=== PATIENT | female | born 1995 | race African-American/Black ===

== ENCOUNTER 2016-11-13 06:55 | Emergency (ER) | payer OTHER ==
[~2016-11-13] VITALS: Ht 154.9 cm; Wt 72.0 kg
[2016-11-13 06:56] VITALS: BP 132/79; PULSE 79; RESP 17; TEMP 97.8; O2SAT 100
[2016-11-13] MEDS ORDERED: ONDANSETRON ODT 4 MG TAB PO ONE (08:00)
[2016-11-13] MEDS ORDERED: VIST25CA PO (08:50)
[2016-11-13] MEDS ORDERED: ZOFR4TAB PO (08:50)
--- NOTE | 2016-11-13 08:53 | PD ---
HPI Chief Complaint: Respiratory Symptoms Time Seen by Provider: 07:38 Travel History International Travel<30 days: No Contact w/Intl Traveler<30days: No Traveled to known affect area: No History of Present Illness HPI The patient was seen and examined in the presence of the nurse. This patient has history of anxiety problems, and comes in complaining of nausea and diarrhea and shortness of breath. Symptoms severity is mild. No alleviating factors. She has a primary physician in [place] and states that she is visiting here for the day. PFS Past Medical History Asthma: Yes (as a child) ?: Not LMP: 10/19/16 Social History Alcohol Use: Yes (on occasion) Tobacco Use: No Substance Use: No Allergies-Medications (Allergen,Severity, Reaction): Coded Allergies: No Known Allergies (Unverified , 11/13/16) Review of Systems General / Constitutional: No: Fever HENT: No: Headaches Cardiovascular: No: Chest Pain or Discomfort Respiratory: Positive: Shortness of Breath Gastrointestinal: Positive: Nausea, Diarrhea Physical Exam Narrative GENERAL: Well-nourished, well-developed patient. SKIN: Warm and dry. HEAD: Normocephalic. EYES: No scleral icterus. No injection or drainage. NECK: Supple, trachea midline. No JVD or lymphadenopathy. CARDIOVASCULAR: Regular rate and rhythm without murmurs, gallops, or rubs. RESPIRATORY: Breath sounds equal bilaterally. No accessory muscle use. GASTROINTESTINAL: Abdomen soft, non-tender, nondistended. MUSCULOSKELETAL: No cyanosis, or edema. BACK: Nontender without obvious deformity. No CVA tenderness. Data Data Last Documented VS Vital Signs Date Time Temp Pulse Resp B/P Pulse Ox O2 Delivery O2 Flow Rate FiO2 11/13/16 07:24 98 18 100 Room Air 11/13/16 06:56 97.8 132/79 Orders Ondansetron Odt (Zofran Odt) (11/13/16 08:00) MDM Medical Decision Making Medical Screen Exam Complete: Yes Emergency Medical Condition: Yes Medical Record Reviewed: Yes Differential Diagnosis Anxiety, gastritis, food poisoning Narrative Course I have reviewed the patient's electronic medical record. Patient never been here before She has normal vital signs and normal exam. She does not look anxious. I gave her dose of Zofran Prescriptions for Zofran and Vistaril given in warned about potential sedation Recommend primary care follow-up Diagnosis Primary Impression: Nausea vomiting and diarrhea Additional Impression: Anxiety Additional Instructions: The patient was advised to follow up with their physician and return if they worsen. The patient was warned about potential sedation for the medications they will receive on prescription. Med/Other Pt SpecificInfo: Prescription(s) given Scripts Ondansetron (Zofran)4 Mg Tab4 Mg PO Q6HR PRN (NAUSEA OR VOMITING) #12 TAB Ref 0 Prov:Kelechi Ragsdale MD 11/13/16 Hydroxyzine Pamoate (Vistaril)25 Mg Cap25 Mg PO Q6H PRN (ANXIETY) #15 CAP Ref 0 Prov:Kelechi Ragsdale MD 11/13/16 Disposition: 01 DISCHARGE HOME Condition: Stable Kelechi Ragsdale MD Nov 13, 2016 08:53
== END 2016-11-13 10:00 | disposition home or self-care (01) ==
LOC: NEPE 06:55
DX: R11.2 Nausea with vomiting, unspecified (principal); R19.7 Diarrhea, unspecified; F41.9 Anxiety disorder, unspecified; R06.02 Shortness of breath
CPT/HCPCS: 99284